=== PATIENT | female | born 2000 | race Caucasian/White ===

== ENCOUNTER 2022-03-03 00:07 | Emergency (ER) | payer BC ==
[~2022-03-03] VITALS: Ht 170.2 cm; Wt 138.6 kg
[2022-03-03] MEDS ORDERED: FLEXERIL 1010 MG/TAB PO (00:48)
[2022-03-03 01:10] VITALS: BP 117/52; PULSE 89; TEMP 98.1
== END 2022-03-03 01:10 | disposition home or self-care (01) ==
LOC: COL.ER 00:07
DX: S29.012A Strain of muscle and tendon of back wall of thorax, initial encounter (principal); Z28.310 Unvaccinated for COVID-19; X58.XXXA Exposure to other specified factors, initial encounter